=== PATIENT | female | born 1935 | race Caucasian/White ===

== ENCOUNTER → 2016-08-23 | Outpatient (CLI) | payer MEDICARE ==
--- NOTE | 2016-08-23 10:45 | MM ---
Reason for exam: follow-up at short interval from prior study. Last mammogram was performed 6 months ago. History: Patient is postmenopausal, has history of other cancer at age 64, and is nulliparous. Physical Findings: Nurse did not find any significant physical abnormalities on exam. MG Diagnostic Mammo w CAD KELVIN Bilateral CC and MLO view(s) were taken. Prior study comparison: February 20, 2016, left breast MG 3d diag mammo w/cad LT. August 18, 2015, left breast MG 3d work up w/cad LT. August 15, 2015, bilateral MG screening mammo w CAD. August 12, 2013, bilateral digital screening mammo w/CAD. The breast tissue is heterogeneously dense. This may lower the sensitivity of mammography. There is no discrete abnormality. These results were verbally communicated with the patient and result sheet given to the patient on 08/23/16. ASSESSMENT: Negative, BI-RAD 1 RECOMMENDATION: Routine screening mammogram of both breasts in 1 year.
== END | disposition home or self-care (01) ==
LOC: RADMAMWWP 10:09
PROVIDERS: ATTEND Internal Medicine
DX: R92.8 Other abnormal and inconclusive findings on diagnostic imaging of breast (principal)

== ENCOUNTER 2017-03-07 13:19 | Emergency (ER) | payer MEDICARE ==
[2017-03-07 13:24] VITALS: TEMP 98.1
[2017-03-07] MEDS ORDERED: SODIUM CHLORIDE 0.9% 500 ML IV ONE (13:41)
[2017-03-07] MEDS ORDERED: ACETAMINOPHEN TAB 500 MG TAB PO STA (13:41)
--- NOTE | 2017-03-07 13:46 | ED ---
Headache HPI - General Chief Complaint: Headache Stated Complaint: Headache Mode of arrival: ambulatory Limitations: no limitations - History of Present Illness Initial Comments: Patient is a 81-year-old female who presents for evaluation for right-sided headache. Past medical history as below. Patient stated that she developed a headache last night. It initially improved with Aleve. She states that it is still there today which prompted her to come in for evaluation. Laying on her right side of her head makes it worse. Laying on the opposite side of her head makes it better. She cannot qualify the characteristic of the pain. It is similar to previous headache she's had in the past. The pain radiates to the right side of her head. States that she does not typically get headaches. She is concerned that she might have an aneurysm or tumor in her brain. There is no confusion or change in behavior per the family member at bedside. No fevers at home. No trauma to the head. She also denies URI symptoms, visual disturbances, shortness breath, cough, chest pain, nausea, vomiting, diarrhea, pain or burning with urination. - Related Data Home Medications Medication Instructions Recorded Confirmed Ascorbic Acid [Vitamin C] 500 mg PO DAILY 03/07/17 03/07/17 Aspirin 325 mg PO DAILY 03/07/17 03/07/17 Atorvastatin [Lipitor] 20 mg PO HS 03/07/17 03/07/17 Cholecalciferol [Vitamin D3] 1,000 unit PO DAILY 03/07/17 03/07/17 Levothyroxine Sodium [Synthroid] 125 mcg PO DAILY 03/07/17 03/07/17 Losartan/Hydrochlorothiazide 1 tab PO DAILY 03/07/17 03/07/17 [Losartan-Hctz 50-12.5 mg Tab] Psyllium Husk [Metamucil] 0.4 gm PO DAILY 03/07/17 03/07/17 metFORMIN HCL [Glucophage] 500 mg PO DAILY 03/07/17 03/07/17 Allergies Allergy/AdvReac Type Severity Reaction Status Date / Time No Known Allergies Allergy Verified 03/07/17 14:51 Review of Systems ROS Statement: Those systems with pertinent positive or pertinent negative responses have been documented in the HPI. ROS Other: All systems not noted in ROS Statement are negative. Past Medical History Past Medical History: Diabetes Mellitus, Hyperlipidemia, Thyroid Disorder History of Any Multi-Drug Resistant Organisms: None Reported Past Surgical History: Cholecystectomy, Joint Replacement Additional Past Surgical History / Comment(s): ovarian cyst Past Psychological History: Depression Smoking Status: Never smoker Past Alcohol Use History: None Reported Past Drug Use History: None Reported General Exam Limitations: no limitations General appearance: alert, in no apparent distress, other (Nontoxic appearing) Head exam: Present: atraumatic, normocephalic, normal inspection, other (No pain with palpation in the right temporal area of the right side of her head.) Eye exam: Present: normal appearance, PERRL, EOMI, other (No conjunctival injection. Extraocular muscles are intact. No pain with palpation around the right eye. Vision at baseline per the patient. No lesion to the tip of the nose.). Absent: scleral icterus, conjunctival injection, periorbital swelling ENT exam: Present: normal exam, mucous membranes moist, other (Right tympanic membrane appears clear. No lesions to the tympanic membrane.) Neck exam: Present: normal inspection, other (No pain with palpation of the neck.). Absent: tenderness, meningismus, lymphadenopathy Respiratory exam: Present: normal lung sounds bilaterally. Absent: respiratory distress, wheezes, rales, rhonchi, stridor Cardiovascular Exam: Present: regular rate, normal rhythm, normal heart sounds. Absent: systolic murmur, diastolic murmur, rubs, gallop, clicks GI/Abdominal exam: Present: soft, normal bowel sounds. Absent: distended, tenderness, guarding, rebound, rigid Extremities exam: Present: normal inspection, full ROM, normal capillary refill. Absent: tenderness, pedal edema, joint swelling, calf tenderness Back exam: Present: normal inspection Neurological exam: Present: alert, oriented X3, CN II-XII intact, other ( Cranial nerves II through XII grossly intact without focal neurological deficits. Alert and oriented 3. Answers questions appropriately. Sensation intact in all 4 charities. 5-5 strength of the upper or lower chimneys bilaterally. No ataxia of the upper or lower charities. Gait intact. No dysmetria or dysarthria.) Psychiatric exam: Present: normal affect, normal mood Skin exam: Present: warm, dry, intact, normal color. Absent: rash Course Vital Signs 03/07/17 03/07/17 13:21 14:55 Temperature 98.1 F Pulse Rate 72 53 L Respiratory 18 17 Rate Blood Pressure 121/67 128/58 O2 Sat by Pulse 96 99 Oximetry Medical Decision Making - Medical Decision Making 1340: Patient is a pleasant 81-year-old female presents for evaluation for right -sided headache. Similar to previous headaches. Improved with Aleve. Still has it which prompted her for evaluation and she is concern for an aneurysm or a tumor in her brain. She is neurologically intact. I cannot reproduce the pain with palpation of the right temporal area. No visual disturbances. No lesions on the tympanic membrane of the nose to suggest shingles. We'll order CT head without contrast. Basic labs with an ESR. A gram of Tylenol and small fluid bolus. 1540: Laboratory studies within normal limits. ESR 17. Physical exam findings and I consistent with a trigeminal neuralgia or temporal arteritis. CT head revealed aging changes. Patient states that her headache is improved. Requesting to go home. Encourage close follow-up with her primary care physician. Discussed signs and symptoms on when to return to emergency department for further evaluation. Patient voiced understanding. Patient's family member at bedside also voiced understanding. Will return if she develops any mental status changes or any other concerning symptoms. Continue with Tylenol. Should for roughly 1000 mg every 6-8 hours (not to exceed 3 gm 2/ 2 to age/metabolism). - Lab Data Result diagrams: 03/07/17 13:55 03/07/17 13:55 Lab Results 03/07/17 03/07/17 03/07/17 Range/Units 13:55 13:55 14:03 WBC 4.4 (3.8-10.6) k/uL RBC 4.64 (3.80-5.40) m/uL Hgb 14.4 (11.4-16.0) gm/dL Hct 43.5 (34.0-46.0) % MCV 93.7 (80.0-100.0) fL MCH 31.0 (25.0-35.0) pg MCHC 33.1 (31.0-37.0) g/dL RDW 13.8 (11.5-15.5) % Plt Count 252 (150-450) k/uL Neutrophils % (Manual) 46 % Lymphocytes % (Manual) 30 % Monocytes % (Manual) 21 % Eosinophils % (Manual) 2 % Basophils % (Manual) 1 % Neutrophils # (Manual) 2.02 (1.3-7.7) k/uL Lymphocytes # (Manual) 1.32 (1.0-4.8) k/uL Monocytes # (Manual) 0.92 (0-1.0) k/uL Eosinophils # (Manual) 0.09 (0-0.7) k/uL Basophils # (Manual) 0.04 (0-0.2) k/uL Nucleated RBCs 0 (0-0) /100 WBC Manual Slide Review Performed Poikilocytosis (manual Present ESR 17 (0-20) mm/hr Sodium 141 (137-145) mmol/L Potassium 4.3 (3.5-5.1) mmol/L Chloride 105 (98-107) mmol/L Carbon Dioxide 26 (22-30) mmol/L Anion Gap 10 mmol/L BUN 18 H (7-17) mg/dL Creatinine 0.89 (0.52-1.04) mg/dL Est GFR (MDRD) Af Amer >60 (>60 ml/min/1.73 sqM) Est GFR (MDRD) Non-Af >60 (>60 ml/min/1.73 sqM) Glucose 79 (74-99) mg/dL Calcium 9.6 (8.4-10.2) mg/dL Total Bilirubin 0.4 (0.2-1.3) mg/dL AST 28 (14-36) U/L ALT 31 (9-52) U/L Alkaline Phosphatase 77 (38-126) U/L Total Protein 6.9 (6.3-8.2) g/dL Albumin 3.9 (3.5-5.0) g/dL Urine Color Yellow Urine Appearance Cloudy H (Clear) Urine pH 6.5 (5.0-8.0) Ur Specific [place] 1.010 (1.001-1.035) Urine Protein Negative (Negative) Urine Glucose (UA) Negative (Negative) Urine Ketones Negative (Negative) Urine Blood Negative (Negative) Urine Nitrite Negative (Negative) Urine Bilirubin Negative (Negative) Urine Urobilinogen <2.0 (<2.0) mg/dL Ur Leukocyte Esterase Large H (Negative) Urine RBC 3 (0-5) /hpf Urine WBC 18 H (0-5) /hpf Ur Squamous Epith Cells 31 H (0-4) /hpf Urine Bacteria Rare H (None) /hpf Disposition Clinical Impression: Headache Disposition: HOME SELF-CARE Condition: Good Instructions: Acute Headache (ED) Referrals: Filomena Hanna MD [Primary Care Provider] - 1-2 days
[2017-03-07 14:13] LABS: Aty Lym Flag Slight; CH 31.8; CHCM 34.1; HCT 43.5 % (34.0-46.0); HDW 2.65; HGB 14.4 gm/dL (11.4-16.0); MCHC 33.1 g/dL (31.0-37.0); MCV 93.7 fL (80.0-100.0); Mean Platelet Volume 7.8; RBC 4.64 m/uL (3.80-5.40); RDW 13.8 % (11.5-15.5); WBC 4.4 k/uL (3.8-10.6); WBC (Perox) 4.21
[2017-03-07 14:22] LABS: ALT 31 U/L (9-52); AST 28 U/L (14-36); Alkaline Phosphatase 77 U/L (38-126); Anion Gap 10 mmol/L; Blood Urea Nitrogen 18 mg/dL (7-17); Calcium 9.6 mg/dL (8.4-10.2); Carbon Dioxide 26 mmol/L (22-30); Chloride 105 mmol/L (98-107); Glucose 79 mg/dL (74-99); Non-African American GFR(MDRD) >60 (>60 ml/min/1.73 sqM); Potassium 4.3 mmol/L (3.5-5.1); Sodium 141 mmol/L (137-145); Total Bilirubin 0.4 mg/dL (0.2-1.3); Total Protein 6.9 g/dL (6.3-8.2)
[2017-03-07 14:41] LABS: Appearance,Urine Cloudy (Clear); Bacteria,Urine Rare /hpf; Bilirubin,Urine Negative (Negative); Glucose,Urine (UA) Negative (Negative); Ketones,Urine Negative (Negative); Leukocyte Esterase,Urine Large (Negative); Nitrite,Urine Negative (Negative); PH, Urine 6.5 (5.0-8.0); Particle Count 22111; Protein,Urine Negative (Negative); RBC,Urine 3 /hpf (0-5); Squamous Epithelial Cell,Urine 31 /hpf (0-4); UA Billing (MACRO vs. MICRO) MICRO; Urobilinogen,Urine <2.0 mg/dL (<2.0); WBC,Urine 18 /hpf (0-5)
--- NOTE | 2017-03-07 14:45 | CT ---
EXAMINATION TYPE: CT brain wo con DATE OF EXAM: 03/07/2017 COMPARISON: 12:15 HISTORY: Rt side Headache CT DLP: 1072.3 mGycm Automated exposure control for dose reduction was used. FINDINGS: Moderate generalized degenerative change. Periventricular white matter low attenuation is nonspecific but most typical remote microvascular ischemia. No midline shift or mass effect. No acute hemorrhage. Calvarium intact. Atherosclerotic changes are IMPRESSION: NO ACUTE INTRACRANIAL HEMORRHAGE OR MASS EFFECT. NONSPECIFIC WHITE MATTER FINDINGS MOST TYPICAL REMOTE MICROVASCULAR ISCHEMIA.
[2017-03-07 14:50] LABS: Add Differential Manual Differential
[2017-03-07 14:53] LABS: Manual Review Performed; Nucleated Red Blood Cells 0 /100 WBC (0-0); Total Cells Counted 100
[2017-03-07 15:39] LABS: Erythrocyte Sedimentation Rate 17 mm/hr (0-20)
[2017-03-07 16:02] VITALS: BP 127/97; PULSE 65; RESP 18
== END 2017-03-07 16:02 | disposition home or self-care (01) ==
LOC: EC 13:19
DX: R51 Headache (principal); E11.9 Type 2 diabetes mellitus without complications; E78.5 Hyperlipidemia, unspecified; E07.9 Disorder of thyroid, unspecified; Z79.84 Long term (current) use of oral hypoglycemic drugs; Z79.82 Long term (current) use of aspirin; Z79.899 Other long term (current) drug therapy
CPT/HCPCS: 36415; 70450; 80053; 81001; 85025; 85652; 96360; 96361; 99284

== ENCOUNTER 2017-10-02 15:09 | Emergency (ER) | payer MEDICARE ==
[2017-10-02 15:14] VITALS: BP 167/71; PULSE 88; RESP 18; TEMP 97.7
--- NOTE | 2017-10-02 15:24 | ED ---
General Adult HPI - General Chief complaint: Fall Stated complaint: fall Time Seen by Provider: 10/02/17 15:16 Source: patient, RN notes reviewed Mode of arrival: ambulatory Limitations: no limitations - History of Present Illness Initial comments: Patient is an 82-year-old female who presents emergency room today with a chief complaint of a fall that occurred just prior to arrival. She states she was walking into a restaurant and was a big steps she got tripped up on falling [place]. Does admit to abrasion to the top of her forehead and her nose. Some tenderness to the nasal bone. Admits she had a bloody nose. States she's not on any blood thinners. Patient states she used her hands to try to catch herself and she is expressing some pain over the second and third metacarpal area. Patient admits to a little abrasion to the right knee and left hand but states these feel fine. Denies any other complaints or symptoms. Denies any head injury or loss of consciousness. Patient denies any recent fever, chills, shortness of breath, chest pain, back pain, abdominal pain, nausea or vomiting, numbness or tingling, headaches or visual changes, or any other complaints. - Related Data Home Medications Medication Instructions Recorded Confirmed Ascorbic Acid [Vitamin C] 500 mg PO DAILY 03/07/17 03/07/17 Aspirin 325 mg PO DAILY 03/07/17 03/07/17 Atorvastatin [Lipitor] 20 mg PO HS 03/07/17 03/07/17 Cholecalciferol [Vitamin D3] 1,000 unit PO DAILY 03/07/17 03/07/17 Levothyroxine Sodium [Synthroid] 125 mcg PO DAILY 03/07/17 03/07/17 Losartan/Hydrochlorothiazide 1 tab PO DAILY 03/07/17 03/07/17 [Losartan-Hctz 50-12.5 mg Tab] Psyllium Husk [Metamucil] 0.4 gm PO DAILY 03/07/17 03/07/17 metFORMIN HCL [Glucophage] 500 mg PO DAILY 03/07/17 03/07/17 Allergies Allergy/AdvReac Type Severity Reaction Status Date / Time No Known Allergies Allergy Verified 10/02/17 15:14 Review of Systems ROS Statement: Those systems with pertinent positive or pertinent negative responses have been documented in the HPI. ROS Other: All systems not noted in ROS Statement are negative. Past Medical History Past Medical History: Diabetes Mellitus, Hyperlipidemia, Thyroid Disorder History of Any Multi-Drug Resistant Organisms: None Reported Past Surgical History: Cholecystectomy, Joint Replacement Additional Past Surgical History / Comment(s): ovarian cyst Past Psychological History: Depression Smoking Status: Never smoker Past Alcohol Use History: None Reported Past Drug Use History: None Reported General Exam - General Exam Comments Initial Comments: General: The patient is awake and alert, in no distress, and does not appear acutely ill. Neck: The neck is supple, there is no tenderness or JVD. ENT: Patient does have abrasion over the anterior aspect of the nose. Subjective blood in the left nostril. No septal hematoma. No obvious deviation of the nasal bone. Mild tenderness over the nasal bone on palpation. Cardiovascular: There is a regular rate and rhythm. No murmur, rub or gallop is appreciated. Respiratory: Lungs are clear to auscultation, respirations are non-labored, breath sounds are equal. No wheezes, stridor, rales, or rhonchi. Musculoskeletal: Patient shows good range of motion. Does have some mild tenderness over the second and third metacarpals. No other bony tenderness to the digits, wrist or elbow. Sensation is intact pulses equal bilaterally 2+. Neurological: A&O x 3. CN II-XII intact, There are no obvious motor or sensory deficits. Coordination appears grossly intact. Speech is normal. Skin: Superficial abrasion to the right side of the forehead and also over the nose. No active bleeding. There are some superficial abrasions to the left palmar aspect no bleeding. Also some abrasions to the right knee no bleeding. Psychiatric: Normal mood and affect. Limitations: no limitations Course Vital Signs 10/02/17 15:12 Temperature 97.7 F Pulse Rate 88 Respiratory 18 Rate Blood Pressure 167/71 O2 Sat by Pulse 96 Oximetry Medical Decision Making - Medical Decision Making X-ray of the right hand negative. X-ray of the nasal bridge does show a small fracture of the distal tip. Results were discussed with the patient. Patient advised follow-up ENT over the next week as swelling goes down. She is advised to follow-up for repeat x-rays if her symptoms of hand pain do not improve in 7- 10 days for repeat x-ray. Advised return for any other concerns. Disposition Clinical Impression: Fall, Nasal fracture, Hand contusion, Abrasion Disposition: HOME SELF-CARE Condition: Good Instructions: Nasal Fracture (ED) Additional Instructions: Please follow-up with ENT over the next week if symptoms are not improving as discussed. Please follow-up for repeat had x-rays in 7-10 days if symptoms are not improving. Please continue to ice elevate the affected area and use Tylenol /ibuprofen for pain. Please return to emergency room if the symptoms increase or worsen or for any other concerns. Referrals: Filomena Hanna MD [Primary Care Provider] - 1-2 days Dawit Dougherty DO [Doctor of Osteopathic Medicine] - 1-2 days Time of Disposition: 16:17
--- NOTE | 2017-10-02 16:08 | XR ---
EXAMINATION TYPE: XR hand complete RT DATE OF EXAM: 10/02/2017 CLINICAL HISTORY: Fall injury today with right hand and wrist pain. TECHNIQUE: Frontal, lateral and oblique images of the right hand are obtained. COMPARISON: None. FINDINGS: Osseous structures are demineralized which is noted to lower radiographic sensitivity. The re is no acute fracture/dislocation evident in the right hand. Suspect old tiny avulsion fracture fro m ulnar styloid with 1 mm ossific fragment seen. There is radiocarpal joint space loss. There is mild to moderate joint space loss and mild spurring throughout the phalanges. There is mild joint space l oss at base of first metacarpal. The overlying soft tissue appears unremarkable. IMPRESSION: There is no acute fracture or dislocation in the right hand.
--- NOTE | 2017-10-02 16:10 | XR ---
EXAMINATION TYPE: XR nasal bone DATE OF EXAM: 10/02/2017 COMPARISON: NONE HISTORY: Facial pain after injury TECHNIQUE: Frontal and lateral views of the nasal bone were obtained. FINDINGS: There is a minimally displaced 2 mm fracture fragment of the most distal tip of the nasal b one displaced approximately 1 mm posterior. Overlying soft tissue swelling is seen. Nasal septum is o verall midline. Paranasal sinuses are well aerated. Orbits appear intact. IMPRESSION: Minimally displaced 2 mm fracture fragment of the most distal tip of the nasal bone with overlying soft tissue swelling.
== END 2017-10-02 16:22 | disposition home or self-care (01) ==
LOC: EC 15:09
DX: S02.2XXA Fracture of nasal bones, initial encounter for closed fracture (principal); S60.221A Contusion of right hand, initial encounter; S00.81XA Abrasion of other part of head, initial encounter; S60.512A Abrasion of left hand, initial encounter; S80.211A Abrasion, right knee, initial encounter; E78.5 Hyperlipidemia, unspecified; E11.9 Type 2 diabetes mellitus without complications; E07.9 Disorder of thyroid, unspecified; Z79.82 Long term (current) use of aspirin; Z79.84 Long term (current) use of oral hypoglycemic drugs; Z79.899 Other long term (current) drug therapy; W18.09XA Striking against other object with subsequent fall, initial encounter; Y93.01 Activity, walking, marching and hiking; Y92.89 Other specified places as the place of occurrence of the external cause
CPT/HCPCS: 70160; 99283

== ENCOUNTER → 2018-05-08 | Outpatient (CLI) | payer MEDICARE ==
--- NOTE | 2018-05-08 14:45 | XR ---
Lumbosacral spine HISTORY: Bilateral hip pain, sciatica 5 views of the lumbosacral spine Correlation prior exam 01/03/2016 Surgical clips are present in the right upper quadrant. Bone mineralization is reduced. Alignment is remarkable for anterolisthesis grade 1 L4-5. There is no evident spondylolysis. Sclerosis present in the posterior elements of the lower lumbar spine. Loss of disc height L5-S1, L4-5, L3-4. There is mul tilevel spondylosis. Vertebral body height is maintained. Vascular calcifications are noted. IMPRESSION: Degenerative disc disease and facet arthropathy, osteopenia. Additional findings above.
== END | disposition home or self-care (01) ==
LOC: RADXRYALE 10:18
PROVIDERS: ATTEND Internal Medicine
DX: M51.17 Intervertebral disc disorders with radiculopathy, lumbosacral region (principal); M43.16 Spondylolisthesis, lumbar region; M47.817 Spondylosis without myelopathy or radiculopathy, lumbosacral region; M46.97 Unspecified inflammatory spondylopathy, lumbosacral region; M85.88 Other specified disorders of bone density and structure, other site
CPT/HCPCS: 72110

== ENCOUNTER 2019-02-18 18:32 | Emergency (ER) | payer MEDICARE ==
--- NOTE | 2019-02-18 18:53 | ED ---
General Adult HPI - General Chief complaint: Headache Stated complaint: headache Time Seen by Provider: 02/18/19 18:41 Source: patient, RN notes reviewed Mode of arrival: ambulatory Limitations: no limitations - History of Present Illness Initial comments: 83-year-old female presents to the emergency department for a chief complaint of right sided headache 2 weeks. Patient states that this has been consistent for 2 weeks and has not worsened or improved. States she has been taking Aleve for this but it does not seem to be helping. Admits to some blurry vision in both of her eyes. Denies any fevers. Denies neck pain. Denies difficulty opening her jaw. Denies any constitutional symptoms. Patient states lying down makes the pain worse and sitting up makes the pain better. Otherwise denies any alleviating or aggravating factors. Patient saw her primary care provider today who sent her in for evaluation of temporal arteritis. Patient states she has had headaches before but does not recall if this is similar to previous headaches. He states she may have had similar headaches prior. However on review of her visit she was seen in 2017 for exactly the same complaint. Denies any head injuries.Patient has no other complaints at this time including shortness of breath, chest pain, abdominal pain, nausea or vomiting. - Related Data Home Medications Medication Instructions Recorded Confirmed Ascorbic Acid [Vitamin C] 500 mg PO DAILY 03/07/17 03/07/17 Aspirin 325 mg PO DAILY 03/07/17 03/07/17 Atorvastatin [Lipitor] 20 mg PO HS 03/07/17 03/07/17 Cholecalciferol [Vitamin D3] 1,000 unit PO DAILY 03/07/17 03/07/17 Levothyroxine Sodium [Synthroid] 125 mcg PO DAILY 03/07/17 03/07/17 Losartan/Hydrochlorothiazide 1 tab PO DAILY 03/07/17 03/07/17 [Losartan-Hctz 50-12.5 mg Tab] Psyllium Husk [Metamucil] 0.4 gm PO DAILY 03/07/17 03/07/17 metFORMIN HCL [Glucophage] 500 mg PO DAILY 03/07/17 03/07/17 Allergies Allergy/AdvReac Type Severity Reaction Status Date / Time No Known Allergies Allergy Verified 02/18/19 18:36 Review of Systems ROS Statement: Those systems with pertinent positive or pertinent negative responses have been documented in the HPI. ROS Other: All systems not noted in ROS Statement are negative. Past Medical History Past Medical History: Diabetes Mellitus, Hyperlipidemia, Thyroid Disorder History of Any Multi-Drug Resistant Organisms: None Reported Past Surgical History: Cholecystectomy, Joint Replacement Additional Past Surgical History / Comment(s): ovarian cyst Past Psychological History: Depression Smoking Status: Never smoker Past Alcohol Use History: None Reported Past Drug Use History: None Reported General Exam Limitations: no limitations General appearance: alert, in no apparent distress (Sitting up on the edge of the bed, no distress, appears pleasant.) Head exam: Present: atraumatic, normocephalic, normal inspection Eye exam: Present: normal appearance, PERRL, EOMI, other (Temporal artery pulses are equal bilaterally. No tenderness to the area of the temporal artery. No tenderness to the right parietal or temporal area. No evidence of shingles or other skin lesions.). Absent: scleral icterus, conjunctival injection, periorbital swelling ENT exam: Present: normal exam, normal oropharynx (No claudication of the jaw.), mucous membranes moist, TM's normal bilaterally, normal external ear exam Neck exam: Present: normal inspection, full ROM. Absent: tenderness, meningismus, lymphadenopathy Respiratory exam: Present: normal lung sounds bilaterally. Absent: respiratory distress, wheezes, rales, rhonchi, stridor Cardiovascular Exam: Present: regular rate, normal rhythm, normal heart sounds. Absent: systolic murmur, diastolic murmur, rubs, gallop, clicks Neurological exam: Present: alert, oriented X3, CN II-XII intact, normal gait, other (GCS 15) Psychiatric exam: Present: normal affect, normal mood Course Vital Signs 02/18/19 02/18/19 02/18/19 18:33 19:38 20:44 Temperature 98.0 F 98 F 97.3 F L Pulse Rate 63 55 L 58 L Respiratory 18 16 16 Rate Blood Pressure 120/58 111/54 127/60 O2 Sat by Pulse 100 99 100 Oximetry Medical Decision Making - Medical Decision Making 83-year-old female presents to the emergency department for a chief complaint of right-sided headache 2 weeks. States this has been consistent has not worsened or improved. States it is worse when lying down and better when sitting up. Does admit to some blurry vision but denies any other complaints associated with this. Describes this pain as a pressure. Patient was sent in by primary care for concerns of temporal arteritis. On exam patient is well- appearing. She is sitting on edge of bed without any distress. States pain has actually improved at this time. No tenderness to the temporal artery, 2+ temporal pulse palpated. No rashes over the right temporal area where patient complains of pain. CBC and CMP are unremarkable. CRP is negative and ESR is 14. Likely not associated with temporal arteritis. However CT does show anterior half of the right frontal lobe showing extensive vasogenic edema associated with a 9 mm leftward shift differential including neoplasm, secondary versus primary. Patient also has a 3 x 1.5 cm hyperdense lesion consistent with intraparenchymal hemorrhage. Patient was given IV Decadron due to vasogenic edema. Patient is not on any blood thinners but does take a 325 mg aspirin daily. Discussed this case with Dr. Holm who will be contacting neurosurgery and accepts this answer. Discussed these findings with patient who is agreeable to transfer via EMS. - Lab Data Result diagrams: 02/18/19 19:07 02/18/19 19:07 Lab Results 02/18/19 02/18/19 Range/Units 19:07 19:07 WBC 6.2 (3.8-10.6) k/uL RBC 4.78 (3.80-5.40) m/uL Hgb 15.0 (11.4-16.0) gm/dL Hct 44.6 (34.0-46.0) % MCV 93.3 (80.0-100.0) fL MCH 31.5 (25.0-35.0) pg MCHC 33.7 (31.0-37.0) g/dL RDW 13.6 (11.5-15.5) % Plt Count 251 (150-450) k/uL Neutrophils % 59 % Lymphocytes % 26 % Monocytes % 8 % Eosinophils % 3 % Basophils % 1 % Neutrophils # 3.7 (1.3-7.7) k/uL Lymphocytes # 1.6 (1.0-4.8) k/uL Monocytes # 0.5 (0-1.0) k/uL Eosinophils # 0.2 (0-0.7) k/uL Basophils # 0.1 (0-0.2) k/uL ESR 14 (0-20) mm/hr Sodium 136 L (137-145) mmol/L Potassium 4.0 (3.5-5.1) mmol/L Chloride 98 (98-107) mmol/L Carbon Dioxide 29 (22-30) mmol/L Anion Gap 9 mmol/L BUN 36 H (7-17) mg/dL Creatinine 1.12 H (0.52-1.04) mg/dL Est GFR (CKD-EPI)AfAm 53 (>60 ml/min/1.73 sqM) Est GFR (CKD-EPI)NonAf 46 (>60 ml/min/1.73 sqM) Glucose 99 (74-99) mg/dL Calcium 10.2 (8.4-10.2) mg/dL C-Reactive Protein <5.0 (<10.0) mg/L Disposition Clinical Impression: Vasogenic edema, Neoplasm, brain, Intraparenchymal hemorrhage of brain Disposition: OTHER INSTITUTION NOT DEFINED Condition: Serious Referrals: Filomena Hanna MD [Primary Care Provider] - 1-2 days Time of Disposition: 20:47 - Out of Hospital Transfer - Req. Specs Out of Hospital Transfer - Requested Specifics: Other [facility] ([facility]
[2019-02-18] MEDS ORDERED: SODIUM CHLORIDE 0.9% 500 ML 500 ML IV STA (18:54)
[2019-02-18] MEDS ORDERED: METOCLOPRAMIDE 5 MG/ML 2 ML VIAL IVP STA (18:54)
[2019-02-18] MEDS ORDERED: ACETAMINOPHEN TAB 500 MG TAB PO STA (18:54)
[2019-02-18 19:20] LABS: Basophils # (A) 0.1 k/uL (0-0.2); Basophils % (A) 1 %; Eosinophils # (A) 0.2 k/uL (0-0.7); Eosinophils % (A) 3 %; HCT 44.6 % (34.0-46.0); Lymphocytes # (A) 1.6 k/uL (1.0-4.8); Lymphocytes % (A) 26 %; MCH 31.5 pg (25.0-35.0); MCHC 33.7 g/dL (31.0-37.0); MCV 93.3 fL (80.0-100.0); Monocytes # (A) 0.5 k/uL (0-1.0); Monocytes % (A) 8 %; Neutrophils # (A) 3.7 k/uL (1.3-7.7); Neutrophils % (A) 59 %; Platelet Count 251 k/uL (150-450); RBC 4.78 m/uL (3.80-5.40); RDW 13.6 % (11.5-15.5); WBC 6.2 k/uL (3.8-10.6)
[2019-02-18 19:32] LABS: African American GFR (CKD) 53 (>60 ml/min/1.73 sqM); Anion Gap 9 mmol/L; Blood Urea Nitrogen 36 mg/dL (7-17); C Reactive Protein <5.0 mg/L (<10.0); Calcium 10.2 mg/dL (8.4-10.2); Carbon Dioxide 29 mmol/L (22-30); Chloride 98 mmol/L (98-107); Glucose 99 mg/dL (74-99); Sodium 136 mmol/L (137-145)
[2019-02-18 19:39] VITALS: RESP 16
[2019-02-18 20:05] LABS: Erythrocyte Sedimentation Rate 14 mm/hr (0-20)
--- NOTE | 2019-02-18 20:16 | CT ---
EXAMINATION: CT brain wo con DATE AND TIME: 02/18/2019 7:32 PM CLINICAL INDICATION: PHH; Pain TECHNIQUE: Standard departmental protocol.; 1099.4; COMPARISON: CT 03/07/2017 FINDINGS: The anterior half of the right frontal lobe shows extensive vasogenic edema. At the nunez-wh ite junction anteriorly is a 3 x 1.5 x 1.0 cm hyperdense lesion, consistent with intraparenchymal hem orrhagic focus at the nunez-white junction. The right frontal lobe vasogenic edema results in associat ed 9 mm leftward shift of midline structures in the anterior cranial fossa. The leading differential diagnostic consideration would be neoplasm, secondary versus primary. There are no other intra-axial lesions. The calvarium is intact. The paranasal sinuses, middle ear cavities, and mastoid sinus air cells are clear. The orbits are unremarkable. Results discussed with ordering clinician. IMPRESSION: POSITIVE FOR MIDLINE SHIFT OF STRUCTURES SECONDARY TO RIGHT FRONTAL LOBE PATHOLOGY ABOVE.
[2019-02-18] MEDS ORDERED: DEXAMETHASONE SOD PHOSPHATE 10 MG/ML 1 ML VIAL IV STA (20:42)
[2019-02-18 20:45] VITALS: BP 127/60; PULSE 58; TEMP 97.3
== END 2019-02-18 22:09 | disposition short-term general hospital (02) ==
LOC: EC 18:32
DX: D49.6 Neoplasm of unspecified behavior of brain (principal); G93.6 Cerebral edema; I61.9 Nontraumatic intracerebral hemorrhage, unspecified; E11.9 Type 2 diabetes mellitus without complications; E78.5 Hyperlipidemia, unspecified; E07.9 Disorder of thyroid, unspecified; Z79.82 Long term (current) use of aspirin; Z79.84 Long term (current) use of oral hypoglycemic drugs; Z79.890 Hormone replacement therapy; Z79.899 Other long term (current) drug therapy
CPT/HCPCS: 36415; 80048; 85652; 85025; 86140; 70450; 99285; 96374; 96375; 96361 ×2; J1100; J2765

== ENCOUNTER → 2019-03-25 | Outpatient (CLI) | payer MEDICARE ==
--- NOTE | 2019-03-25 15:20 | MR ---
EXAMINATION TYPE: MR brain wo/w con DATE OF EXAM: 03/25/2019 COMPARISON: CT 03/10/2019, brain 02/19/2019 HISTORY: Nontraumatic intracerebral hemorrhage TECHNIQUE: Multiplanar, multisequence images of the brain and brainstem is performed without and with IV contras t, utilizing 7 mL intravenous Gadavist . 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 Scattered hyperintensities are present within the subcortical, juxtacortical, perive ntricular and pericallosal white matter similar to prior exam. Surrounding vasogenic edema pattern oconnor s improved. No midline shift. Abnormality measures approximately 4 x 3.9 x 4.3 cm which is decreased as compared to prior exam Midline structures demonstrate normal morphology. The craniocervical junct ion appears within normal limits. Post contrast images demonstrate no abnormal enhancement. The dura l venous sinuses appear patent. The visualized sinuses are clear and the globes are intact. IMPRESSION: There is improvement in the appearance as described. Nonspecific white matter demyelinati on.
== END ==
LOC: RADMRIMAIN 09:21
PROVIDERS: ATTEND Neurological Surgery
DX: G37.9 Demyelinating disease of central nervous system, unspecified (principal)
CPT/HCPCS: 70553; A9585

== ENCOUNTER 2024-07-30 06:57 | Inpatient (IN) | payer MEDICARE ==
--- NOTE | 2024-07-30 07:37 | ED ---
General Adult HPI - General Chief complaint: Chest Pain Stated complaint: Chest/Back pain Time Seen by Provider: 07/30/24 07:07 Source: patient, RN notes reviewed, old records reviewed Mode of arrival: wheelchair Limitations: no limitations - History of Present Illness Initial comments: This is an 88-year-old female who presents to the emergency department complaining of chest pain. Patient states that started yesterday while she was shoveling her deck and it does radiate to her back.. Patient states the pain radiates to her left arm and up into her neck. Patient also complains of difficulty breathing. Patient states the pain continues currently. Patient denies any diaphoretic episode. Patient denies any nausea. Patient denies any abdominal pain. Patient denies any back pain. Patient states movement does not seem to make it worse. Patient denies any recent fever chills or cough. - Related Data Home Medications Medication Instructions Recorded Confirmed Ascorbic Acid [Vitamin C] 500 mg PO DAILY 03/07/17 07/30/24 Atorvastatin [Lipitor] 20 mg PO DAILY 03/07/17 07/30/24 Cholecalciferol (Vitamin D3) 50 mcg PO DAILY 07/30/24 07/30/24 [Vitamin D3 (50 Mcg = 2000 Iu)] Levothyroxine Sodium [Synthroid] 75 mcg PO DAILY 07/30/24 07/30/24 Zinc Gluconate [Zinc] 50 mg PO DAILY 07/30/24 07/30/24 Allergies Allergy/AdvReac Type Severity Reaction Status Date / Time No Known Allergies Allergy Verified 07/30/24 09:58 Review of Systems ROS Statement: Those systems with pertinent positive or pertinent negative responses have been documented in the HPI. ROS Other: All systems not noted in ROS Statement are negative. Past Medical History Past Medical History: Diabetes Mellitus, Hyperlipidemia, Thyroid Disorder History of Any Multi-Drug Resistant Organisms: None Reported Past Surgical History: Cholecystectomy, Joint Replacement Additional Past Surgical History / Comment(s): ovarian cyst Past Psychological History: Depression Smoking Status: Never smoker Past Alcohol Use History: None Reported Past Drug Use History: None Reported General Exam - General Exam Comments Initial Comments: GENERAL: Patient is well-developed and well-nourished. Patient is nontoxic and well- hydrated and is in no mild distress. ENT: Neck is soft and supple. No significant lymphadenopathy is noted. Oropharynx is clear. Moist mucous membranes. Neck has full range of motion without eliciting any pain. There is no thyroid enlargement and no masses were felt. EYES: The sclera were anicteric and conjunctiva were pink and moist. Extraocular movements were intact and pupils were equal round and reactive to light. Eyelids were unremarkable. PULMONARY: Unlabored respirations. Good breath sounds bilaterally. No audible rales rhonchi or wheezing was noted. CARDIOVASCULAR: There is a regular rate and rhythm with 3 out of 6 murmur. Femoral pulses are equal bilaterally ABDOMEN: Soft and nontender with normal bowel sounds. No palpable organomegaly was noted. There is no palpable pulsatile mass. SKIN: Skin is clear with no lesions or rashes and otherwise unremarkable. NEUROLOGIC: Patient is alert and oriented x3. Cranial nerves II through XII are grossly intact. Motor and sensory are also intact. Normal speech, volume and content. Symmetrical smile. MUSCULOSKELETAL: Normal extremities with adequate strength and full range of motion. No lower extremity swelling or edema. No calf tenderness. LYMPHATICS: No significant lymphadenopathy is noted PSYCHIATRIC: Normal psychiatric evaluation. Limitations: no limitations Course Vital Signs 07/30/24 07/30/24 07/30/24 06:59 07:55 08:00 Temperature 98.5 F 102.0 F H Pulse Rate 78 79 Pulse Rate [ 79 Fire Hydrant Mechanic ] Respiratory 18 16 Rate Blood Pressure 165/81 134/73 O2 Sat by Pulse 96 92 L Oximetry 07/30/24 07/30/24 07/30/24 08:58 09:52 10:22 Temperature 99.4 F 98.3 F Pulse Rate 67 64 Pulse Rate [ Fire Hydrant Mechanic ] Respiratory 19 20 18 Rate Blood Pressure 130/65 112/62 O2 Sat by Pulse 93 L 95 Oximetry 07/30/24 10:39 Temperature 98.5 F Pulse Rate 58 L Pulse Rate [ Fire Hydrant Mechanic ] Respiratory 19 Rate Blood Pressure 106/59 O2 Sat by Pulse 95 Oximetry Medical Decision Making - Medical Decision Making EKG is interpreted by myself. EKG shows a sinus rhythm at 72 bpm NV was 183 QRS is 92 QT interval is 416 QTc is 440. Patient has inverted T waves in precordial leads V4, V5 and V6 as well as inferior leads II, III and aVF A repeat EKG was done and it was interpreted by myself but EKG shows a sinus rhythm at 68 bpm NV 194 QRS is 91 QT interval 420 QTc is 438. Patient's EKG shows no ST segment elevation or depression. Was pt. sent in by a medical professional or institution (, [facility], IGNITION EXPERT, urgent care, hospital, or senior care...) When possible be specific @ -No Did you speak to anyone other than the patient for history (EMS, parent, family, police, friend...)? What history was obtained from this source @ -No Did you review nursing and triage notes (agree or disagree)? Why? @ -I reviewed and agree with nursing and triage notes Were old charts reviewed (outside hosp., previous admission, EMS record, old EKG, old radiological studies, urgent care reports/EKG's, senior care records)? Report findings @ -No old charts were reviewed Differential Diagnosis? @ -Differential Chest Pain: Stable Angina, Unstable Angina, STEMI, NSTEMI Aortic Dissection, Pneumothorax, Musculoskeletal, Esophageal Spasm GERD, Cholecystitis, Pancreatitis, Zoster, this is not meant to be an all-inclusive list. EKG interpreted by me (3pts min.). @ -As above X-rays interpreted by me (1pt min.). @ -Chest x-ray shows no acute abnormality CT interpreted by me (1pt min.). @ -CT of the chest showed no pulmonary embolism or aortic dissection U/S interpreted by me (1pt. min.). @ -None done What testing was considered but not performed or refused? (CT, X-rays, U/S, labs)? Why? @ -None What meds were considered but not given or refused? Why? @ -None Did you discuss the management of the patient with other professionals (professionals i.e. PRESTON Campos, IGNITION EXPERT, lab, RT, psych nurse, rn social services, events administrative assistant, te acher, army senior officer, casework supervisor)? Give summary @ -I spoke with Dr. Paul and he decided to take the patient to the catheterization lab. I spoke with Dr. Gresham from [facility] and he will admit the patient Was smoking cessation discussed for >3mins.? @ -No Was critical care preformed (if so, how long)? @ -Third 5 minutes Were there social determinants of health that impacted care today? How? (Homelessness, low income, unemployed, alcoholism, drug addiction, transportation, low edu. Level, literacy, decrease access to med. care, long term, rehab)? @ -No Was there de-escalation of care discussed even if they declined (Discuss DNR or withdrawal of care, Hospice)? DNR status @ -No What co-morbidities impacted this encounter? (DM, HTN, Smoking, COPD, CAD, Cancer, CVA, ARF, Chemo, Hep., AIDS, mental health diagnosis, sleep apnea, morbid obesity)? @ -None Was patient admitted / discharged? Hospital course, mention meds given and route, prescriptions, significant lab abnormalities, going to OR and other pertinent info. @ -Patient continues to have chest pain in the emergency department and the patient's troponin was elevated so I started the patient on heparin patient rece ived aspirin and nitroglycerin. Patient also received Lipitor. Patient will be going to the catheterization lab with Dr. Paul Undiagnosed new problem with uncertain prognosis? @ -No Drug Therapy requiring intensive monitoring for toxicity (Heparin, Nitro, Insulin, Cardizem)? @ -No Were any procedures done? @ -No Diagnosis/symptom? @ -NSTEMI Acute, or Chronic, or Acute on Chronic? @ -Acute Uncomplicated (without systemic symptoms) or Complicated (systemic symptoms)? @ -Complicated Side effects of treatment? @ -No Exacerbation, Progression, or Severe Exacerbation? @ -No Poses a threat to life or bodily function? How? (Chest pain, USA, AR, pneumonia, PE, COPD, DKA, ARF, appy, cholecystitis, CVA, Diverticulitis, Homicidal, Suicidal, threat to staff... and all critical care pts) @ -Yes this can lead to an AR and endorgan dysfunction - Lab Data Result diagrams: 07/30/24 07:54 07/30/24 07:54 Lab Results 07/30/24 07/30/24 07/30/24 Range/Units 07:54 07:54 07:54 WBC 9.1 (3.8-10.6) k/uL RBC 4.84 (3.80-5.40) m/uL Hgb 15.3 (11.4-16.0) gm/dL Hct 46.6 H (34.0-46.0) % MCV 96.4 (80.0-100.0) fL MCH 31.6 (25.0-35.0) pg MCHC 32.8 (31.0-37.0) g/dL RDW 14.3 (11.5-15.5) % Plt Count 195 (150-450) k/uL MPV 8.2 Neutrophils % 82 % Lymphocytes % 11 % Monocytes % 4 % Eosinophils % 2 % Basophils % 0 % Neutrophils # 7.4 (1.3-7.7) k/uL Lymphocytes # 1.0 (1.0-4.8) k/uL Monocytes # 0.3 (0-1.0) k/uL Eosinophils # 0.2 (0-0.7) k/uL Basophils # 0.0 (0-0.2) k/uL PT 10.2 (10.0-12.5) sec INR 0.9 (<1.2) APTT 28.3 (22.0-30.0) sec Sodium 137 (137-145) mmol/L Potassium 4.3 (3.5-5.1) mmol/L Chloride 102 (98-107) mmol/L Carbon Dioxide 31 H (22-30) mmol/L Anion Gap 4 mmol/L BUN 18 H (7-17) mg/dL Creatinine 1.11 H (0.52-1.04) mg/dL Est GFR (CKD-EPI)AfAm 52 (>60 ml/min/1.73 sqM) Est GFR (CKD-EPI)NonAf 45 (>60 ml/min/1.73 sqM) Glucose 133 H (74-99) mg/dL Plasma Lactic Acid Doug (0.7-2.0) mmol/L Calcium 9.3 (8.4-10.2) mg/dL Magnesium 2.1 (1.6-2.3) mg/dL Total Bilirubin 1.2 (0.2-1.3) mg/dL AST 32 (14-36) U/L ALT 20 (4-34) U/L Alkaline Phosphatase 101 (38-126) U/L Troponin I (0.000-0.034) ng/mL Total Protein 7.2 (6.3-8.2) g/dL Albumin 4.0 (3.5-5.0) g/dL Influenza Type A (PCR) (Not Detectd) Influenza Type B (PCR) (Not Detectd) RSV (PCR) (Not Detectd) SARS-CoV-2 (PCR) (Not Detectd) 07/30/24 07/30/24 07/30/24 Range/Units 07:54 08:22 09:02 WBC (3.8-10.6) k/uL RBC (3.80-5.40) m/uL Hgb (11.4-16.0) gm/dL Hct (34.0-46.0) % MCV (80.0-100.0) fL MCH (25.0-35.0) pg MCHC (31.0-37.0) g/dL RDW (11.5-15.5) % Plt Count (150-450) k/uL MPV Neutrophils % % Lymphocytes % % Monocytes % % Eosinophils % % Basophils % % Neutrophils # (1.3-7.7) k/uL Lymphocytes # (1.0-4.8) k/uL Monocytes # (0-1.0) k/uL Eosinophils # (0-0.7) k/uL Basophils # (0-0.2) k/uL PT (10.0-12.5) sec INR (<1.2) APTT (22.0-30.0) sec Sodium (137-145) mmol/L Potassium (3.5-5.1) mmol/L Chloride (98-107) mmol/L Carbon Dioxide (22-30) mmol/L Anion Gap mmol/L BUN (7-17) mg/dL Creatinine (0.52-1.04) mg/dL Est GFR (CKD-EPI)AfAm (>60 ml/min/1.73 sqM) Est GFR (CKD-EPI)NonAf (>60 ml/min/1.73 sqM) Glucose (74-99) mg/dL Plasma Lactic Acid Doug 1.2 (0.7-2.0) mmol/L Calcium (8.4-10.2) mg/dL Magnesium (1.6-2.3) mg/dL Total Bilirubin (0.2-1.3) mg/dL AST (14-36) U/L ALT (4-34) U/L Alkaline Phosphatase (38-126) U/L Troponin I 0.448 H* (0.000-0.034) ng/mL Total Protein (6.3-8.2) g/dL Albumin (3.5-5.0) g/dL Influenza Type A (PCR) Not Detected (Not Detectd) Influenza Type B (PCR) Not Detected (Not Detectd) RSV (PCR) Not Detected (Not Detectd) SARS-CoV-2 (PCR) Not Detected (Not Detectd) Disposition Clinical Impression: Acute non-ST elevation myocardial infarction (NSTEMI) Disposition: ADMITTED IP TO THIS HOSP Referrals: Filomena Hanna MD [Primary Care Provider] - 1-2 days Time of Disposition: 11:27
[2024-07-30] MEDS: ASPIRIN 81 MG PO STA (07:42)
[2024-07-30] MEDS: NITROGLYCERIN SL TABS 0.4 MG TAB SUBLINGUAL STA (07:43)
[2024-07-30 08:06] LABS: Basophils % (A) 0 %; Eosinophils # (A) 0.2 k/uL (0-0.7); Eosinophils % (A) 2 %; HCT 46.6 % (34.0-46.0); HGB 15.3 gm/dL (11.4-16.0); Lymphocytes % (A) 11 %; MCH 31.6 pg (25.0-35.0); MCHC 32.8 g/dL (31.0-37.0); MCV 96.4 fL (80.0-100.0); Mean Platelet Volume 8.2; Monocytes # (A) 0.3 k/uL (0-1.0); Monocytes % (A) 4 %; Neutrophils # (A) 7.4 k/uL (1.3-7.7); Neutrophils % (A) 82 %; Platelet Count 195 k/uL (150-450); RBC 4.84 m/uL (3.80-5.40); RDW 14.3 % (11.5-15.5); WBC 9.1 k/uL (3.8-10.6)
[2024-07-30 08:14] LABS: ALT 20 U/L (4-34); AST 32 U/L (14-36); African American GFR (CKD) 52 (>60 ml/min/1.73 sqM); Alkaline Phosphatase 101 U/L (38-126); Anion Gap 4 mmol/L; Blood Urea Nitrogen 18 mg/dL (7-17); Calcium 9.3 mg/dL (8.4-10.2); Carbon Dioxide 31 mmol/L (22-30); Chloride 102 mmol/L (98-107); Glucose 133 mg/dL (74-99); Magnesium 2.1 mg/dL (1.6-2.3); Non-African American GFR(CKD) 45 (>60 ml/min/1.73 sqM); Potassium 4.3 mmol/L (3.5-5.1); Sodium 137 mmol/L (137-145); Total Bilirubin 1.2 mg/dL (0.2-1.3); Total Protein 7.2 g/dL (6.3-8.2)
[2024-07-30 08:15] LABS: INR 0.9 (<1.2); Partial Thromboplastin Time 28.3 sec (22.0-30.0); Prothrombin Time 10.2 sec (10.0-12.5)
--- NOTE | 2024-07-30 08:22 | XR ---
EXAMINATION TYPE: XR chest 2V DATE OF EXAM: 07/30/2024 8:12 AM COMPARISON: Chest radiographs from 01/03/2016 CLINICAL INDICATION: Female, 88 years old with history of Chest Pain; TECHNIQUE: XR chest 2V Frontal and lateral views of the chest. FINDINGS: Lungs/Pleura: There is no evidence of pleural effusion, focal consolidation, or pneumothorax. Pulmonary vascularity: Unremarkable. Heart/mediastinum: Cardiomediastinal silhouette is prominent in size. Musculoskeletal: No acute osseous pathology. IMPRESSION: Low lung volumes with a generalized hazy appearance which could represent atelectasis versus pulmonar y edema correlate with serum BNP. [facility], , 07/30/2024 8:20 AM
[2024-07-30] MEDS: ACETAMINOPHEN TAB 500 MG TAB PO STA (08:34)
[2024-07-30] MEDS: IBUPROFEN 600 MG TAB PO STA (08:35)
[2024-07-30 09:00] LABS: Influenza A Not Detected (Not Detectd); Influenza B Not Detected (Not Detectd); RSV Not Detected (Not Detectd)
[2024-07-30] MEDS: cefTRIAXone IN SWFI 1,000 MG/10 ML SYRINGE IVP STA (09:04)
[2024-07-30] MEDS: HEPARIN SOD,PORK IN 0.45% NACL 25,000 UNIT in 0.45% NACL 1 250ML.BAG IV SCH (09:15)
[2024-07-30] MEDS: HEPARIN SODIUM 1,000 UN/ML (10ML VL) IV ONE (09:18)
[2024-07-30] MEDS: SODIUM CHLORIDE 0.9% 1,000 ML IV STA (10:37)
--- NOTE | 2024-07-30 11:07 | CT ---
EXAMINATION TYPE: CT angio thor/abd DATE OF EXAM: 07/30/2024 10:24 AM COMPARISON: None. CLINICAL INDICATION: Female, 88 years old with history of Chest/ back pain, r/o aortic disection and PE, Chest/ back pain, r/o aortic disection and PE TECHNIQUE: CT of the chest is performed on a spiral scan at 2 mm thick sections. Study is performed with intravenous contrast timed for evaluation for aortic dissection and PE. This will limit additio nal portions of the evaluation. 3-D MIP images reconstructed by the technologist are reviewed on the computer in the coronal and sagittal planes. Contrast used:80ml mL of Isovue 370 without and with IV Contrast, (none if empty) Oral contrast used: (none if empty) CT DLP: 1003.5 mGycm, Automated exposure control for dose reduction was used. FINDINGS: No persistent filling defects are evident to suggest an acute pulmonary embolism. No aortic dissection is evident. Plaquing is evident within the descending thoracic aorta No mediastinal or hilar adenopathy enlarged by CT criteria is evident. Calcified lymphadenopathy in the subcarinal region The ascending aorta diameter at the level of the main pulmonary artery is 4.0 cm. The main pulmonary artery diameter at the bifurcation is 3.4 cm. Lung windows are clear. CT abdomen: There is minimal fusiform prominence of the mid abdominal aorta measuring 2.6 cm in AP di mension. No aneurysmal dilatation evident. Celiac axis superior mesenteric artery and bilateral renal arteries identified. Some stenosis at the origin of superior mesenteric artery may be present. Vascu lar calcifications through the aorta. Liver appears unremarkable. Multiple calcified granulomata within the spleen. Adrenal glands are norm al. Pancreas is unremarkable. Kidneys appear normal without masses or hydronephrosis. Cortical renal cysts at the inferior pole right kidney. Peripelvic cysts or mild left hydronephrosis may be present no hydroureter is evident. Limited CT sections of the upper pelvis are unremarkable. Uterus appears normal. Adnexal regions are normal. Loops of bowel within the upper pelvis appear unremarkable. Appendix is unremarkable. IMPRESSION: 1. No acute pulmonary embolism. 2. No suspicious aortic dissection. [facility], Workstation: [id number], 07/30/2024 11:05 AM
[2024-07-30] MEDS: ATORVASTATIN 80 MG TAB PO STA (11:24)
[2024-07-30] MEDS ORDERED: NITROGLYCERIN SL TABS 0.4 MG TAB SUBLINGUAL PRN ×2 (11:28→11:37)
[2024-07-30] MEDS ORDERED: ALPRAZolam 0.25 MG TAB PO PRN (11:37)
[2024-07-30] MEDS: NITROGLYCERIN OINT 1 INCH/GM PACKET TOPICAL STA (11:38)
--- NOTE | 2024-07-30 11:50 | P.CRDCN ---
History of Present Illness Consult date: 07/30/24 Consult reason: chest pain History of present illness: This is an 88-year-old female with no previous cardiac history, past medical history of hyperlipidemia and hypothyroidism. We have been asked to evaluate the patient for chest pain. Patient presented to the emergency center due to chest pain and back pain also with some radiation to the left arm and into the neck. Patient apparently was shoveling snow. Blood pressure 106/59, heart rate 58, pulse ox 95% on room air. Patient noted to have a temperature max of 102. She denies fevers at home. No further elevated temperatures documented. Patient is seen today in the emergency center waiting for bed on the cardiac stepdown unit. Regarding heparin drip. This was on hold waiting for CT results. -EKG: Sinus rhythm with T wave inversion -Chest x-ray: Atelectasis versus pulmonary edema -CT angiogram of the thoracic and abdominal aorta revealed no PE, no aortic dissection. -Laboratory studies: CBC unremarkable. Sodium 137, potassium 4.3, BUN 18, creatinine 1.11. Troponin 0.448. Influenza, RSV and COVID-19 not detected. -Home cardiac medications: Atorvastatin 20 mg daily and also on levothyroxine 75 mcg daily Review Of Systems: At the time of my exam: CONSTITUTIONAL: Denies fever or chills. HEENT: Denies blurred vision, vision changes, or eye pain. Denies hemoptysis CARDIOVASCULAR: Denies chest pain. Denies orthopnea. Denies PND. Denies palpitations RESPIRATORY: Denies shortness of breath. GASTROINTESTINAL: Denies abdominal pain. Denies nausea or vomiting. HEMATOLOGIC: Denies bleeding disorders. GENITOURINARY: Denies any blood in urine. SKIN: Denies puritis. Denies rash. Physical examination: Gen: This is a 88-year-old female in no acute distress VS: reviewed HEENT: Head is atraumatic, normocephalic. Pupils equal, round. Sclerae is anicteric. NECK: Supple. JVD 1 cm. LUNGS: Clear to auscultation. No wheezes or rhonchi. No intercostal retractions. HEART: Regular rate and rhythm. 3/6 MICHELLE. ABDOMEN: Soft No tenderness. EXTREMITIES: No pedal edema. No calf tenderness. NEUROLOGICAL: Patient is awake, alert and oriented x3. Assessment: NSTEMI Aortic stenosis murmur Hyperlipidemia Hypothyroidism Plan: Resume patient's home cardiac medications Add metoprolol 12.5 mg twice daily IV fluids 75 cc/h Nitropaste but hold if systolic blood pressure less than 120 Schedule patient for cardiac catheterization today with Dr. Paul [email or web address].o. Obtain 2-D echocardiogram and Doppler study to assess cardiac structure and function Further recommendations to follow based upon clinical course Thank you kindly for this consultation. Nurse practitioner note has been reviewed, I agree with documented findings and plan of care. Patient was seen and examined. Past Medical History Past Medical History: Diabetes Mellitus, Hyperlipidemia, Thyroid Disorder History of Any Multi-Drug Resistant Organisms: None Reported Past Surgical History: Cholecystectomy, Joint Replacement Additional Past Surgical History / Comment(s): ovarian cyst Past Psychological History: Depression Smoking Status: Never smoker Past Alcohol Use History: None Reported Past Drug Use History: None Reported Medications and Allergies Home Medications Medication Instructions Recorded Confirmed Type Ascorbic Acid [Vitamin C] 500 mg PO DAILY 03/07/17 07/30/24 History Atorvastatin [Lipitor] 20 mg PO DAILY 03/07/17 07/30/24 History Cholecalciferol (Vitamin D3) 50 mcg PO DAILY 07/30/24 07/30/24 History [Vitamin D3 (50 Mcg = 2000 Iu)] Levothyroxine Sodium [Synthroid] 75 mcg PO DAILY 07/30/24 07/30/24 History Zinc Gluconate [Zinc] 50 mg PO DAILY 07/30/24 07/30/24 History Allergies Allergy/AdvReac Type Severity Reaction Status Date / Time No Known Allergies Allergy Verified 07/30/24 09:58 Physical Exam Vitals: Vital Signs Temp Pulse Pulse Resp BP Pulse Ox 07/30/24 11:26 98.2 F 60 18 112/61 94 L 07/30/24 10:39 98.5 F 58 L 19 106/59 95 07/30/24 10:22 98.3 F 18 07/30/24 09:52 64 20 112/62 95 07/30/24 08:58 99.4 F 67 19 130/65 93 L 07/30/24 08:00 79 07/30/24 07:55 102.0 F H 79 16 134/73 92 L 07/30/24 06:59 98.5 F 78 18 165/81 96 Intake and Output 07/29/24 07/30/24 07/30/24 22:59 06:59 14:59 Intake Total 2.236 Balance 2.236 Intake: Intake, IV Titration 2.236 Amount Heparin Sod,Pork in 0.45% 2.236 NaCl 25,000 unit In 0.45 % NaCl 1 250ml.bag @ 12 UNITS/KG/HR 7.893 mls/hr IV .Q24H [facility] Rx#: [id number] Other: Weight 65.771 kg Results 07/30/24 07:54 07/30/24 07:54 Cardiac Enzymes 07/30/24 07/30/24 Range/Units 07:54 07:54 AST 32 (14-36) U/L Troponin I 0.448 H* (0.000-0.034) ng/mL Coagulation 07/30/24 Range/Units 07:54 PT 10.2 (10.0-12.5) sec APTT 28.3 (22.0-30.0) sec CBC 07/30/24 Range/Units 07:54 WBC 9.1 (3.8-10.6) k/uL RBC 4.84 (3.80-5.40) m/uL Hgb 15.3 (11.4-16.0) gm/dL Hct 46.6 H (34.0-46.0) % Plt Count 195 (150-450) k/uL Comprehensive Metabolic Panel 07/30/24 Range/Units 07:54 Sodium 137 (137-145) mmol/L Potassium 4.3 (3.5-5.1) mmol/L Chloride 102 (98-107) mmol/L Carbon Dioxide 31 H (22-30) mmol/L BUN 18 H (7-17) mg/dL Creatinine 1.11 H (0.52-1.04) mg/dL Glucose 133 H (74-99) mg/dL Calcium 9.3 (8.4-10.2) mg/dL AST 32 (14-36) U/L ALT 20 (4-34) U/L Alkaline Phosphatase 101 (38-126) U/L Total Protein 7.2 (6.3-8.2) g/dL Albumin 4.0 (3.5-5.0) g/dL Current Medications Generic Name Dose Route Start Last Admin Trade Name Freq PRN Reason Stop Dose Admin Aspirin 325 mg 07/31/24 09:00 Aspirin 325 Mg Tab PO DAILY [facility] Atorvastatin Calcium 80 mg 07/31/24 09:00 Atorvastatin 80 Mg Tab PO DAILY [facility] Heparin Sodium/Sodium Chloride 250 mls @ 7.893 mls/hr 07/30/24 08:45 07/30/24 09:32 25,000 unit/ Sodium Chloride IV 0 units/kg/hr .Q24H [facility] 0 mls/hr Titration Protocol 12 UNITS/KG/HR Sodium Chloride 1,000 mls @ 75 mls/hr 07/30/24 10:22 07/30/24 10:37 Saline 0.9% IV 07/30/24 23:41 75 mls/hr .[id number] STA Administration Levothyroxine Sodium 75 mcg 07/31/24 06:30 Levothyroxine 75 Mcg Tab PO DAILY@0630 [facility] Nitroglycerin 0.4 mg 07/30/24 11:28 Nitroglycerin Sl Tabs 0.4 Mg Tab SUBLINGUAL Q5M PRN Chest Pain Nitroglycerin 1 inch 07/30/24 12:00 Nitroglycerin Oint 1 Inch/Gm Packet TOPICAL Q6HR [facility] Intake and Output 07/29/24 07/30/24 07/30/24 22:59 06:59 14:59 Intake Total 2.236 Balance 2.236 Intake: Intake, IV Titration 2.236 Amount Heparin Sod,Pork in 0.45% 2.236 NaCl 25,000 unit In 0.45 % NaCl 1 250ml.bag @ 12 UNITS/KG/HR 7.893 mls/hr IV .Q24H [facility] Rx#: [id number] Other: Weight 65.771 kg 07/30/24 07:54 07/30/24 07:54
[2024-07-30] MEDS ORDERED: HEPARIN SODIUM,PORCINE 10,000 UNIT in SODIUM CHLORIDE 0.9% 1,000 ML IRRIGATION PRN (12:00)
[2024-07-30] MEDS ORDERED: HEPARIN SODIUM,PORCINE (1 ML) 2,500 UNIT in SODIUM CHLORIDE 0.9% 250 ML IRRIGATION PRN (12:00)
[2024-07-30 12:05] LABS: Appearance,Urine Clear (Clear); Bilirubin,Urine Negative (Negative); Blood,Urine Negative (Negative); Color,Urine Light Yellow; Glucose,Urine (UA) Negative (Negative); Ketones,Urine Negative (Negative); Leukocyte Esterase,Urine Negative (Negative); Nitrite,Urine Negative (Negative); Protein,Urine Trace (Negative); Specific Gravity,Urine 1.021 (1.001-1.035); Urobilinogen,Urine <2.0 mg/dL (<2.0)
--- NOTE | 2024-07-30 12:06 | P.HPIM ---
History of Present Illness 88-year-old pleasant female came in with complaints of left-sided chest pain pressure-like sensation radiating to the neck. Patient has significant EKG changes in the lateral leads. Patient has mild elevated troponin of 0.448. Patient's creatinine is 1.11 baseline is 0.8. Patient still has some chest pain cardiology evaluate the patient patient is going to [facility] for coronary angiography chest x-ray showed atelectasis no clear evidence of pulmonary edema BNP will be ordered. CT angio of the chest was done which did not show any arctic dissection or pulmonary embolism. Influenza RSV and COVID-19 are negative. REVIEW OF SYSTEMS: All other systems are negative except those mentioned in the HPI PHYSICAL EXAMINATION: GENERAL: The patient is alert and oriented x3, not in any acute distress. Well developed, well nourished. HEENT: Pupils are round and equally reacting to light. EOMI. No scleral icterus. No conjunctival pallor. Normocephalic, atraumatic. No pharyngeal erythema. No thyromegaly. CARDIOVASCULAR: S1 and S2 present. No rubs, or gallops. Systolic murmur in the aortic area PULMONARY: Chest is clear to auscultation, no wheezing or crackles. ABDOMEN: Soft, nontender, nondistended, normoactive bowel sounds. No palpable organomegaly. MUSCULOSKELETAL: No joint swelling or deformity. EXTREMITIES: No cyanosis, clubbing, or pedal edema. NEUROLOGICAL: Gross neurological examination did not reveal any focal deficits. SKIN: No rashes. Assessment and plan -Acute non-ST elevation myocardial infarction patient will undergo cardiac catheterization patient will be continued on IV heparin at this time -Hypothyroidism -Hyperlipidemia -Systolic murmur in the attic area possibly of aortic stenosis DVT prophylaxis: Patient is presently on IV heparin Past Medical History Past Medical History: Diabetes Mellitus, Hyperlipidemia, Thyroid Disorder History of Any Multi-Drug Resistant Organisms: None Reported Past Surgical History: Cholecystectomy, Joint Replacement Additional Past Surgical History / Comment(s): ovarian cyst Past Psychological History: Depression Smoking Status: Never smoker Past Alcohol Use History: None Reported Past Drug Use History: None Reported Medications and Allergies Home Medications Medication Instructions Recorded Confirmed Type Ascorbic Acid [Vitamin C] 500 mg PO DAILY 03/07/17 07/30/24 History Atorvastatin [Lipitor] 20 mg PO DAILY 03/07/17 07/30/24 History Cholecalciferol (Vitamin D3) 50 mcg PO DAILY 07/30/24 07/30/24 History [Vitamin D3 (50 Mcg = 2000 Iu)] Levothyroxine Sodium [Synthroid] 75 mcg PO DAILY 07/30/24 07/30/24 History Zinc Gluconate [Zinc] 50 mg PO DAILY 07/30/24 07/30/24 History Allergies Allergy/AdvReac Type Severity Reaction Status Date / Time No Known Allergies Allergy Verified 07/30/24 09:58 Physical Exam Vitals: Vital Signs Temp Pulse Pulse Resp BP Pulse Ox 07/30/24 11:26 98.2 F 60 18 112/61 94 L 07/30/24 10:39 98.5 F 58 L 19 106/59 95 07/30/24 10:22 98.3 F 18 07/30/24 09:52 64 20 112/62 95 07/30/24 08:58 99.4 F 67 19 130/65 93 L 07/30/24 08:00 79 07/30/24 07:55 102.0 F H 79 16 134/73 92 L 07/30/24 06:59 98.5 F 78 18 165/81 96 Intake and Output 07/29/24 07/30/24 07/30/24 22:59 06:59 14:59 Intake Total 2.236 Balance 2.236 Intake: Intake, IV Titration 2.236 Amount Heparin Sod,Pork in 0.45% 2.236 NaCl 25,000 unit In 0.45 % NaCl 1 250ml.bag @ 12 UNITS/KG/HR 7.893 mls/hr IV .Q24H [facility] Rx#: [id number] Other: Weight 65.771 kg Results CBC & Chem 7: 07/30/24 07:54 07/30/24 07:54 Labs: Abnormal Lab Results - Last 24 Hours (Table) 07/30/24 07/30/24 07/30/24 Range/Units 07:54 07:54 07:54 Hct 46.6 H (34.0-46.0) % Carbon Dioxide 31 H (22-30) mmol/L BUN 18 H (7-17) mg/dL Creatinine 1.11 H (0.52-1.04) mg/dL Glucose 133 H (74-99) mg/dL Troponin I 0.448 H* (0.000-0.034) ng/mL Urine Protein (Negative) 07/30/24 Range/Units 12:00 Hct (34.0-46.0) % Carbon Dioxide (22-30) mmol/L BUN (7-17) mg/dL Creatinine (0.52-1.04) mg/dL Glucose (74-99) mg/dL Troponin I (0.000-0.034) ng/mL Urine Protein Trace H (Negative)
[2024-07-30] MEDS: LIDOCAINE 1% INJ 10MG/ML (20 ML MDV) SQ ONE (12:56)
[2024-07-30] MEDS: MIDAZOLAM 2 MG/2 ML VIAL IVP ONE (12:58)
[2024-07-30] MEDS: VERAPAMIL SYRINGE (5 MG/10 ML) INTRAARTER ONE (13:01)
[2024-07-30] MEDS: HEPARIN SODIUM 1,000 UN/ML (10ML VL) IVP ONE (13:01)
[2024-07-30] MEDS: IV FLUID CONTINUATION 1,000 ML IV ONE (13:02)
[2024-07-30] MEDS: PHENYLEPHRINE-0.9% NACL SYG 1,000 MCG/10 ML SYRINGE IVP ONE (13:07)
[2024-07-30] MEDS: NITROGLYCERIN 1000MCG/10ML SYRINGE INTRACORON ONE ×2 (13:25→13:34)
[2024-07-30] MEDS: CLOPIDOGREL 75 MG TAB PO ONE (13:40)
[2024-07-30] MEDS: IOPAMIDOL-370 100ML BTL INJ ONE (13:40)
--- NOTE | 2024-07-30 14:16 | P.CARDCATH ---
Date of Procedure: 07/30/24 Description of Procedure: History: Procedure: #1 coronary angiography. Aortic valve not crossed #2 PTCA and stenting of mid left anterior descending coronary artery with a drug-eluting stent #3 adjunctive intravascular ultrasound of mid LAD Patient was referred for cardiac catheterization to evaluate for CAD. This is a 88-year-old elderly lady a patient of Dr. Hanna who has history of hyperlipidemia and hypothyroidism and takes Lipitor and levothyroxine. She showers some snow and complained of chest heaviness and shortness of breath and came into the hospital. Continued to have chest pain and also complained of midsternal and also back pain on both scapula. She had a CT angio which revealed no evidence of any aortic pathology or pulmonary embolism. Given the troponin elevation precordial ST and T wave changes with a non-ST elevation type picture and ongoing chest pain I recommended coronary angiography. She was hydrated orally as well as intravenously. I spoke to the patient and daughter at length. They understood all details and wished to proceed with the procedure. Echo revealed moderate to severe aortic stenosis with preserved systolic function mean gradient of nearly 40 mmHg Procedure Details: The risks, benefits, complications, treatment options, and expected outcomes were discussed with the patient. The patient and/or family concurred with the proposed plan, giving informed consent. Patient was brought to the [facility] after IV hydration was begun and oral premedication was given. Patient was further sedated with midazolam. Patient was prepped and draped in the usual manner. Under strict aseptic precautions and local anesthesia a 6 Irish introducer was placed in the right radial artery. Using a JL 3/5 and a JR 4/0 catheters I performed coronary angiography and the same JR catheter was used to check LV pressures and LV gram was not performed. After the procedure was completed the sheaths and catheters were all removed. Hemostasis was achieved with TR band. Saturation in the fingers of the right hand was about 94%. Moderate conscious sedation time was 43 minutes. Patient's oxygen saturation hemodynamics and EKG were monitored closely. Findings: Hemodynamics: Aortic valve was not crossed and LV pressures not checked Left Main: Longer patent disease-free vessel with mild calcification no significant disease bifurcates into LAD and circumflex LAD: Good caliber vessel tortuous gives off a septal branch a good-sized diagonal branch and then there is an eccentric 80% lesion with haziness which I believe is the culprit lesion beyond if there is a substantial amount of myocardium being supplied by this and the vessel curves over the apex to supply the inferior apical portion of the left ventricle. CIRC: Nondominant vessel at its origin there is a 35% narrowing. Circumflex has minor irregularities tortuous gives off a single obtuse marginal that runs laterally and divides into 3 branches. Minor irregularities no significant disease RCA: Dominant vessel very tortuous large in caliber distally bifurcates into PDA and PLV minor irregularities no significant disease. LV: Not performed Closure Device: TR band Complications: None Estimated Blood Loss: Minimal Impression: Right dominant system. LV pressures not checked. No significant disease in the left main, dominant RCA and nondominant circumflex. Circumflex has ostial 35% lesion. Mid LAD has 80% eccentric lesion with haziness and appears to be the culprit lesion Pre Procedure Diagnosis: Non-ST elevation UT with aortic stenosis moderate Final Post Procedure Diagnosis: Single-vessel LAD disease and moderate aortic stenosis Recommendation: Proceeded to perform PCI of mid LAD with adjunctive IVUS. PCI procedure details: I used a JL 3.5 guide catheter of 6 Irish caliber and a run-through wire. Predilatation of mid LAD was performed with a 3.0 caliber 12 mm NC trek balloon. I deployed a 3.25 caliber 12 mm Xience stent. I performed intravascular ultrasound noted that the stent was not fully expanded. I went back with a 3.5 caliber NC trek balloon and gave high-pressure inflation. I then repeated the intravascular ultrasound noted that the stent was fully expanded with good apposition and excellent expansion. Patient had an excellent angiographic result as well as a excellent result by IVUS with a JOHANNA-3 flow. She received 3000 units of heparin and ACT was 260. I gave her 600 mg of Plavix. She will take aspirin and Plavix without interruption for 1 year. Findings, PCI details and results discussed with patient at length as well as her daughter. She was sent to esu in stable condition. Complications: None; patient tolerated the procedure well. Disposition: Pacu - hemodynamically stable. Condition: Stable Discharge Disposition: To esu and then to the telemetry unit. Findings discussed at length with patient as well as her daughter..
[2024-07-30] MEDS ORDERED: ATROPINE SULFATE 0.1 MG/ML 10ML SYRINGE IV PRN (14:19)
[2024-07-30] MEDS ORDERED: MAG HYDROX/AL HYDROX/SIMETH 30 ML CUP PO PRN (14:19)
[2024-07-30] MEDS ORDERED: ZOLPIDEM 5 MG TAB PO PRN (14:19)
[2024-07-30] MEDS ORDERED: RX INFO: IV CONTRAST WAS GIVEN 1 EACH MISC MISCELLANE PRN (14:19)
[2024-07-30 15:59] LABS: T4, Free (Free Thyroxine) 0.42 ng/dL (0.78-2.19)
[2024-07-30] MEDS: NITROGLYCERIN OINT 1 INCH/GM PACKET TOPICAL SCH (17:14)
[2024-07-30] MEDS: SODIUM CHLORIDE 0.9% 1,000 ML IV SCH (17:33)
--- NOTE | 2024-07-30 18:22 | CA ---
Transthoracic Echo Report Name: Beatris Wilson Age: 88 Gender: F : 1935 Exam Date: 07/30/2024 12:07 Exam Location: [facility] Ht (in): Wt (lb): Ordering Physician: Cecelia Corley Attending/Referring Phys: [facility] Worker Antonia Rankin RDCS Procedure CPT: Indications: LVH Cardiac Hx: Technical Quality: Fair Contrast 1: Total Dose (mL): Contrast 2: Total Dose (mL): MEASUREMENTS (Male / Female) Normal Values 2D ECHO LV Diastolic Diameter PLAX 4.4 cm 4.2 - 5.9 / 3.9 - 5.3 cm LV Systolic Diameter PLAX 3.1 cm IVS Diastolic Thickness 1.3 cm 0.6 - 1.0 / 0.6 - 0.9 cm LVPW Diastolic Thickness 1.4 cm 0.6 - 1.0 / 0.6 - 0.9 cm LV Relative Wall Thickness 0.6 RV Internal Dim ED PLAX 2.5 cm LA Systolic Diameter LX 4.1 cm 3.0 - 4.0 / 2.7 - 3.8 cm LA Volume 66.3 cm??? 18 - 58 / 22 - 52 cm??? M-MODE Aortic Root Diameter MM 3.2 cm LA Systolic Diameter MM 3.1 cm LA Ao Ratio MM 1.0 AV Cusp Separation MM 0.8 cm DOPPLER AV Peak Velocity 332.4 cm/s AV Peak Gradient 44.2 mmHg AV Mean Velocity 266.1 cm/s AV Mean Gradient 30.1 mmHg AV Velocity Time Integral 83.0 cm AI Peak Velocity 333.7 cm/s AI Peak Gradient 44.6 mmHg AI Pressure Half Time 729.9 ms LVOT Peak Velocity 92.9 cm/s LVOT Peak Gradient 3.5 mmHg LVOT Velocity Time Integral 23.5 cm MV Area PHT 2.5 cm??? Mitral E Point Velocity 80.9 cm/s Mitral A Point Velocity 83.5 cm/s Mitral E to A Ratio 1.0 MV Deceleration Time 298.5 ms TR Peak Velocity 183.7 cm/s TR Peak Gradient 13.5 mmHg Right Ventricular Systolic Press 18.5 mmHg FINDINGS Left Ventricle Left ventricular ejection fraction is estimated at 50-55 %. Left ventricular systolic function borderline normal.Mildly increased left ventricular wall thickness. Left ventricular cavity size normal. Right Ventricle Normal right ventricular size and function. Right ventricular systolic pressure within normal limits. Right Atrium Mild right atrial dilatation. Left Atrium Moderately increased left atrial volume. Mildly increased left atrial area. Mitral Valve Structurally normal mitral valve. Moderate mitral regurgitation. No mitral stenosis.mitral annular calcification. Aortic Valve Trileaflet aortic valve. Moderate aortic stenosis with a peak gradient of 44mmHg and a mean gradient of 30mmHg. Moderate aortic regurgitation. Tricuspid Valve Structurally normal tricuspid valve. Mild tricuspid regurgitation. No tricuspid stenosis. Pulmonic Valve Structurally normal pulmonic valve. Trace pulmonic regurgitation. No pulmonic stenosis. Pericardium No pericardial or pleural effusion. Aorta Normal size aortic root and proximal ascending aorta. CONCLUSIONS 1. Left ventricular size is normal with borderline normal systolic function with hypertrophy 2. Moderate mitral regurgitation 3. Moderate aortic stenosis with a mean gradient of 30 mmHg with moderate aortic regurgitation 4. Mild tricuspid regurgitation with no evidence of pulmonary hypertension Previewed by: Dr. Clyde Chew MD (Electronically Signed) Final Date: 30 July 2024 18:21
[2024-07-30] MEDS: ACETAMINOPHEN TAB 500 MG TAB PO PRN (19:07)
[2024-07-30] MEDS: ATORVASTATIN 40 MG TAB PO SCH (19:48)
[2024-07-30 19:51] LABS: Glucose,Whole Blood 168 mg/dL (70-110)
[2024-07-30] MEDS ORDERED: METOPROLOL TARTRATE 12.5 MG TAB PO SCH (21:00)
[2024-07-30] MEDS: ALPRAZolam 0.5 MG TAB PO PRN (23:15)
[2024-07-31 06:00] LABS: Glucose,Whole Blood 124 mg/dL (70-110)
[2024-07-31] MEDS: LEVOTHYROXINE 75 MCG TAB PO SCH (06:23)
[2024-07-31 07:15] LABS: HCT 39.8 % (34.0-46.0); Hypochromasia Slight; MCH 32.1 pg (25.0-35.0); MCHC 32.6 g/dL (31.0-37.0); MCV 98.4 fL (80.0-100.0); Platelet Count 160 k/uL (150-450); RBC 4.04 m/uL (3.80-5.40); RDW 14.6 % (11.5-15.5); WBC 10.8 k/uL (3.8-10.6)
[2024-07-31 07:32] LABS: African American GFR (CKD) 45 (>60 ml/min/1.73 sqM); Anion Gap 4 mmol/L; Blood Urea Nitrogen 21 mg/dL (7-17); Calcium 8.5 mg/dL (8.4-10.2); Carbon Dioxide 25 mmol/L (22-30); Chloride 106 mmol/L (98-107); Glucose 96 mg/dL (74-99); Non-African American GFR(CKD) 39 (>60 ml/min/1.73 sqM); Potassium 4.1 mmol/L (3.5-5.1); Sodium 135 mmol/L (137-145)
[2024-07-31] MEDS: LOSARTAN 25 MG TAB PO SCH (08:08)
[2024-07-31] MEDS: ASPIRIN 81 MG PO SCH (08:08)
[2024-07-31] MEDS: METOPROLOL TARTRATE 12.5 MG TAB PO SCH (08:08)
[2024-07-31] MEDS: CLOPIDOGREL 75 MG TAB PO SCH (08:09)
[2024-07-31] MEDS ORDERED: ASPIRIN 325 MG TAB PO SCH (09:00)
[2024-07-31] MEDS ORDERED: ATORVASTATIN 20 MG TAB PO SCH (09:00)
[2024-07-31] MEDS ORDERED: ATORVASTATIN 80 MG TAB PO SCH (09:00)
[2024-07-31 10:23] VITALS: RESP 16
[2024-07-31 10:37] LABS: LDL Cholesterol,Calculated 61.6 mg/dL (0.0-131.0); VLDL Calculation 12.86 mg/dL (5.00-40.00)
--- NOTE | 2024-07-31 11:01 | P.PN ---
Subjective Progress Note Date: 07/31/24 Consult reason: chest pain History of present illness: This is an 88-year-old female with no previous cardiac history, past medical history of hyperlipidemia and hypothyroidism. We have been asked to evaluate the patient for chest pain. Patient presented to the emergency center due to chest pain and back pain also with some radiation to the left arm and into the neck. Patient apparently was shoveling snow. Blood pressure 106/59, heart rate 58, pulse ox 95% on room air. Patient noted to have a temperature max of 102. She denies fevers at home. No further elevated temperatures documented. Patient is seen today in the emergency center waiting for bed on the cardiac stepdown unit. Regarding heparin drip. This was on hold waiting for CT resu lts. -EKG: Sinus rhythm with T wave inversion -Chest x-ray: Atelectasis versus pulmonary edema -CT angiogram of the thoracic and abdominal aorta revealed no PE, no aortic dissection. -Laboratory studies: CBC unremarkable. Sodium 137, potassium 4.3, BUN 18, creatinine 1.11. Troponin 0.448. Influenza, RSV and COVID-19 not detected. -Home cardiac medications: Atorvastatin 20 mg daily and also on levothyroxine 75 mcg daily 07/31 Patient seen and examined. Yesterday, patient underwent cardiac catheterization finding no significant disease in the left main, dominant RCA and nondominant circumflex. Circumflex has ostial 35% lesion. Mid LAD 80% eccentric lesion with haziness and appears to be the culprit lesion. Patient also has moderate aortic stenosis. She underwent PTCA and stenting of the mid left anterior descending artery with BASIL. Patient denies having chest pain this morning. Patient to be maintained on aspirin, statin, Plavix and beta-claudia. Blood pressure 119/71, heart rates 59, pulse ox 95% on room air. Repeat blood work reveals potassium 4.1, BUN 21 creatinine 1.25. Echocardiogram reveals left ventricular size is normal with borderline normal systolic function with hypertrophy. Moderate mitral regurgitation. Moderate aortic stenosis with mean gradient of 30 mmHg with moderate aortic regurgitation. Mild tricuspid regurgitation with no evidence of pulmonary hypertension. Physical examination: Gen: This is a 88-year-old female in no acute distress VS: reviewed HEENT: Head is atraumatic, normocephalic. Pupils equal, round. Sclerae is anicteric. LUNGS: Clear to auscultation. No wheezes or rhonchi. No intercostal retractions. HEART: Regular rate and rhythm. 3/6 MICHELLE. ABDOMEN: Soft No tenderness. EXTREMITIES: No pedal edema. No calf tenderness. NEUROLOGICAL: Patient is awake, alert and oriented x3. Assessment: NSTEMI Aortic stenosis, moderate Hyperlipidemia Hypothyroidism Plan: Patient is cleared for discharge from cardiology perspective. Patient may follow-up with Dr. KAROLYN Paul in about 10 days. Patient to be maintained on aspirin 81 mg daily, atorvastatin 40 mg at bedtime, Plavix 75 mg daily, losartan 12.5 mg daily metoprolol tartrate 12.5 mg daily.--Prescriptions have been sent to her pharmacy. Nurse practitioner note has been reviewed, I agree with documented findings and plan of care. Patient was seen and examined. Objective - Vital Signs Vital signs: Vital Signs Temp 97.6 F 07/31/24 03:21 Pulse 58 L 07/31/24 03:21 Resp 18 07/31/24 03:21 BP 107/57 07/31/24 03:21 Pulse Ox 92 L 07/31/24 03:21 FiO2 Intake & Output 07/30/24 07/31/24 07/31/24 18:59 06:59 18:59 Intake Total 327.236 240 Output Total 400 Balance 327.236 -400 240 Weight 65.771 kg 69.4 kg Intake: IV 325 Intake, IV Titration 2.236 Amount Heparin Sod,Pork in 0.45% 2.236 NaCl 25,000 unit In 0.45 % NaCl 1 250ml.bag @ 12 UNITS/KG/HR 7.893 mls/hr IV .Q24H [facility] Rx#: [id number] Oral 240 Output: Urine 400 Straight 400 Other: Voiding Method Toilet Toilet # Voids 1 0 1 # Bowel Movements 1 - Labs CBC & Chem 7: 07/31/24 06:20 07/31/24 06:20 Labs: Abnormal Lab Results - Last 24 Hours (Table) 07/30/24 07/30/24 07/30/24 Range/Units 07:54 11:59 12:00 WBC (3.8-10.6) k/uL Sodium (137-145) mmol/L BUN (7-17) mg/dL Creatinine (0.52-1.04) mg/dL POC Glucose (mg/dL) (70-110) mg/dL Troponin I 0.430 H* (0.000-0.034) ng/mL TSH 37.300 H (0.465-4.680) mIU/L Free T4 0.42 L (0.78-2.19) ng/dL Urine Protein Trace H (Negative) 07/30/24 07/30/24 07/30/24 Range/Units 16:51 19:50 20:10 WBC (3.8-10.6) k/uL Sodium (137-145) mmol/L BUN (7-17) mg/dL Creatinine (0.52-1.04) mg/dL POC Glucose (mg/dL) 168 H (70-110) mg/dL Troponin I 0.297 H* 0.925 H* (0.000-0.034) ng/mL TSH (0.465-4.680) mIU/L Free T4 (0.78-2.19) ng/dL Urine Protein (Negative) 07/31/24 07/31/24 07/31/24 Range/Units 05:59 06:20 06:20 WBC 10.8 H (3.8-10.6) k/uL Sodium 135 L (137-145) mmol/L BUN 21 H (7-17) mg/dL Creatinine 1.25 H (0.52-1.04) mg/dL POC Glucose (mg/dL) 124 H (70-110) mg/dL Troponin I (0.000-0.034) ng/mL TSH (0.465-4.680) mIU/L Free T4 (0.78-2.19) ng/dL Urine Protein (Negative)
[2024-07-31 11:19] LABS: Glucose,Whole Blood 117 mg/dL (70-110)
[2024-07-31 12:34] VITALS: BMI 25.4
[2024-07-31 14:18] VITALS: BP 126/70; PULSE 58; TEMP 98.3
== END 2024-07-31 16:28 | disposition home or self-care (01) | DRG 322 ==
LOC: EC 06:57 → 3SCARD 11:28
PROVIDERS: ADMIT Internal Medicine; ATTEND Internal Medicine
PROC: B240ZZ3 Ultrasonography of Single Coronary Artery, Intravascular (ICD-10-PCS; 2024-07-30)
PROC: 027034Z Dilation of Coronary Artery, One Artery with Drug-eluting Intraluminal Device, Percutaneous Approach (ICD-10-PCS; principal; 2024-07-30 12:30)
PROC: B2111ZZ Fluoroscopy of Multiple Coronary Arteries using Low Osmolar Contrast (ICD-10-PCS; 2024-07-30 12:30)
PROC: 4A023N7 Measurement of Cardiac Sampling and Pressure, Left Heart, Percutaneous Approach (ICD-10-PCS; 2024-07-30 12:30)
DX: I21.4 Non-ST elevation (NSTEMI) myocardial infarction (principal); J98.11 Atelectasis; I35.0 Nonrheumatic aortic (valve) stenosis; Z11.52 Encounter for screening for COVID-19; I25.10 Atherosclerotic heart disease of native coronary artery without angina pectoris; E03.9 Hypothyroidism, unspecified; E11.9 Type 2 diabetes mellitus without complications; I08.3 Combined rheumatic disorders of mitral, aortic and tricuspid valves; E78.5 Hyperlipidemia, unspecified; F32.A Depression, unspecified; R01.1 Cardiac murmur, unspecified; Z79.890 Hormone replacement therapy; Z79.899 Other long term (current) drug therapy; Z90.49 Acquired absence of other specified parts of digestive tract
CPT/HCPCS: 36415; 71046; 71275; 74175; 80048; 80053; 80061; 81003; 83605; 83735; 84439; 84443; 84484; 85025; 85027; 85610; 85730; 87040; 87636; 93005; 93306; 96361; 96365; 96375; 99291